=== PATIENT | male | born 1955 | race African-American/Black ===

== ENCOUNTER 2018-07-30 12:05 | Day surgery (SDC) | payer OTHER, MEDICAID ==
[2018-07-30] MEDS ORDERED: FENTAnyl 50 MCG/ML VIAL (17:09)
[2018-07-30] MEDS ORDERED: MIDAZOLAM 1 MG/ML 2 ML INJ ×2 (17:09)
== END 2018-07-30 15:25 | disposition home or self-care (01) ==
LOC: GIL 12:05
DX: Z12.11 Encounter for screening for malignant neoplasm of colon (principal); D12.0 Benign neoplasm of cecum; D12.3 Benign neoplasm of transverse colon; K64.8 Other hemorrhoids; I10 Essential (primary) hypertension
CPT/HCPCS: 45380; 88305